=== PATIENT | male | born 1960 | race Caucasian/White ===

== ENCOUNTER 2020-04-01 09:57 | Outpatient (CLI) | payer BC, SELFPAY ==
--- NOTE | ~2020-04-01 | CT_ITS ---
EXAMINATION:CT chest high resolution wo nv DATE: 04/01/2020 11:30 INDICATION: Pulmonary fibrosis. Shortness of breath. TECHNIQUE: Computed tomography (CT) of the chest was performed without intravenous contrast. Automate d exposure control and iterative reconstruction technique were employed. The dose-length product (DLP ) was 945.81 mGy-cm. COMPARISON: None. FINDINGS: There is mild atelectasis bilaterally. Calcified bilateral lung nodules and calcified subca rinal lymph nodes are consistent with old granulomatous disease. No bronchiectasis or honeycombing. N o pleural effusion. The heart size is normal. No pericardial effusion. There are prominent paracardia l fat pads. Mediastinal lipomatosis is noted. There is diffuse hepatic steatosis. There are bridging endplate osteophytes at multiple levels in the spine, consistent with diffuse idiopathic skeletal hyp erostosis (DISH). IMPRESSION: 1. No evidence of chronic interstitial lung disease. 2. Diffuse hepatic steatosis. Reviewed, dictated and finalized at location A. RITIES BROKER
--- NOTE | ~2020-04-01 | XR_ITS ---
EXAMINATION: XR chest 2V DATE: 04/01/2020 11:36 INDICATION: Pulmonary fibrosis. Shortness of breath. TECHNIQUE: Frontal and lateral views of the chest were obtained on 3 radiographs. COMPARISON: Chest CT 04/01/2020 FINDINGS: There is mild atelectasis at left lung base. No pleural effusion or pneumothorax. The heart size is normal. There are prominent paracardial fat pads. IMPRESSION: 1. Mild atelectasis at left lung base. Reviewed, dictated and finalized at location A. [employer]
[2020-04-01 10:30] VITALS: PULSE 78; O2SAT 95
[2020-04-01 10:32] VITALS: PULSE 90; O2SAT 94
[2020-04-01 10:40] VITALS: PULSE 75; O2SAT 96
--- NOTE | 2020-04-01 11:20 | HOMEO2EVAL ---
Home Oxygen Evaluation RC: Home Oxygen (O2) Evaluation Start: 04/01/20 11:18 Freq: Status: Active Protocol: RPE Activity Type Activity Date Activity User E-Sign Co-Sign Detail Recorded Client Recorded Date Recorded By Document 04/01/20 10:30 KRM [id number] 04/01/20 11:20 KRM Document 04/01/20 10:32 KRM [id number] 04/01/20 11:20 KRM Document 04/01/20 10:40 KRM [id number] 04/01/20 11:20 KRM 04/01/20 04/01/20 04/01/20 10:30 10:32 10:40 Home O2 Evaluation Test Phase Resting Exercise Resting Oxygen Delivery Room Air Room Air Room Air Pulse Oximetry (90-100 %) 95 94 96 Pulse Rate (60-100 beats/min) 78 90 75 Activity Tolerance Poor Rate of Perceived Exertion (PE) 14 Ambulation Distance (feet) 100 Treatment Charges O2 Evaluation
--- NOTE | 2020-04-04 16:58 | WPDPFTINT ---
PFT Interpretation PFT Interpretation: DOS: 04/01/2020 REQUESTING: Dr Pickering REASON FOR TESTING: Shortness of breath, [facility] TESTS Results are reproducible. Spirometry: FEV1 94%. FVC 83%. FEV1% 78%. All values are normal. [id number]% 104%. No change with bronchodilator. Lung volumes: TLC 93% normal. RV 105% normal. RV/TLC 39% mildly increased consistent with mild air trapping. increased airway resistance 178%. Diffusion: DLCO 96%. Flow volume loop: Normal. IMPRESSION: Normal spirometry, mild air trapping, mild increase in airway resistance. The air trapping suggests an obstructive process. Clinical correlation is recommended. NOTE: The patient declined a 6 minute walk. The RT walked him for a few minutes with his saturation remained normal. Catrina Pickering MD
== END 2020-04-01 09:58 | disposition home or self-care (01) ==
PROVIDERS: PCP Internal Medicine; Visit Provider Internal Medicine Critical Care Medicine
DX: R06.02 Shortness of breath (principal); J84.10 Pulmonary fibrosis, unspecified; K76.0 Fatty (change of) liver, not elsewhere classified; R91.8 Other nonspecific abnormal finding of lung field
CPT/HCPCS: 71046; 71250; 94060; 94618; 94726; 94729

== ENCOUNTER 2020-05-07 07:50 | Outpatient (CLI) | payer BC, SELFPAY ==
--- NOTE | 2020-05-07 08:55 | ECHO_ITS ---
Patient Info Name: Adrian Blood Age: 59 years : 1960 Gender: Male Ht: 77 in Wt: 410 lbs BSA: 3.26 m2 HR: 79 bpm BP: 198 / 105 mmHg Technical Quality: Good Exam Date: 05/07/2020 9:05 AM Exam Location: [facility] Patient Status: Outpatient Admit Date: 05/07/2020 Staff Ordering Physician: Deven Kahn APRN [employer] Room Attendant: Nhan Ray RDCS, RT Attending Provider: Deven Kahn APRN Referring Physician: Femi SALINAS; Exam Type: CA echo doppler color flow Study Info Indications R06.02 - Shortness of breath Complete two-dimensional, color flow and Doppler transthoracic echocardiogram is performed. Strain analysis performed. Summary 1. Complete two-dimensional, color flow and Doppler transthoracic echocardiogram is performed. 2. Left ventricular chamber dimension is normal. 3. Left ventricular systolic function is normal, estimated at 60-65%. 4. The left ventricular diastolic function is grade I diastolic dysfunction. 5. E/e' 7 is not elevated. 6. Global longitudinal strain is abnormal at -15.1%. 7. There is trivial pericardial effusion. Left Ventricle E/e' 7 is not elevated. Global longitudinal strain is abnormal at -15.1%. Left ventricular chamber dimension is normal. Left ventricular systolic function is normal, estimated at 60-65%. The left ventricular diastolic function is grade I diastolic dysfunction. Right Ventricle Right ventricular chamber dimension is normal. Right ventricular systolic function is normal. Left Atria Left atrial chamber dimension is normal. Right Atria Right atrial chamber dimension is normal. Aortic Valve The aortic valve is trileaflet. There is no aortic valve stenosis. There is no aortic valve regurgitation. Pulmonic Valve There is no pulmonic regurgitation. Mitral Valve There is no mitral valve stenosis. There is no mitral valve regurgitation. Tricuspid Valve There is no tricuspid valve regurgitation. Pericardium/Pleural There is trivial pericardial effusion. Inferior Vena Cava Normal inferior vena cava with >50% collapse upon inspiration consistent with normal right atrial pressure, 5 mmHg. Aorta The aortic root size at the sinus of Valsalva is normal. Left Ventricular Outflow Tract Name Value Normal LVOT 2D LVOT Diameter 2.2 cm LVOT Doppler LVOT Peak Gradient 5 mmHg LVOT Mean Gradient 3 mmHg LVOT VTI 24 cm LVOT VTI/AV VTI Ratio 0.9 LVOT Stroke Volume 89 ml LVOT CO 6.7 l/min LVOT CI 2.0 l/min/m2 Mitral Valve Name Value Normal MV Doppler MV Decel [place] 206 cm/s2 MV PHT 73 ms
--- NOTE | 2020-05-13 13:25 | WPDSIXMINUTE ---
Six Minute Walk Six Minute Walk: 6 minute walk test 1222 20 The patient walked 213.36 m ( 700 ft). SaO2 remained at or above 91%. This appears to be a satisfactory 6 MW test Suresh Thomas MD MSc FACP FCCP
== END 2020-05-07 07:51 | disposition home or self-care (01) ==
PROVIDERS: PCP Internal Medicine; Visit Provider Nurse Practitioner Family
DX: R06.02 Shortness of breath (principal)
CPT/HCPCS: 93306; 94618